=== PATIENT | female | born 1955 | race Caucasian/White ===

== ENCOUNTER → 2016-07-08 | Outpatient (CLI) | payer MEDICARE | LOC: HEART 5 11:32 | DX: J45.40 Moderate persistent asthma, uncomplicated (principal); R94.2 Abnormal results of pulmonary function studies | CPT/HCPCS: 94010 ==

== ENCOUNTER → 2020-07-16 | Outpatient (CLI) | payer MEDICARE, OTHER | LOC: HEART 5 14:11 | DX: R06.02 Shortness of breath (principal); J30.9 Allergic rhinitis, unspecified; D64.9 Anemia, unspecified; F41.9 Anxiety disorder, unspecified; J45.40 Moderate persistent asthma, uncomplicated; J44.9 Chronic obstructive pulmonary disease, unspecified | CPT/HCPCS: 94010; 95012 ==

== ENCOUNTER → 2020-12-25 | Outpatient (CLI) | payer MEDICARE, OTHER | LOC: HEART 5 11:48 | DX: J45.40 Moderate persistent asthma, uncomplicated (principal) | CPT/HCPCS: 94010; 95012 ==